=== PATIENT | female | born 1990 | race Caucasian/White ===

== ENCOUNTER 2016-11-14 14:12 | Emergency (ER) | payer MEDICAID ==
[~2016-11-14] VITALS: Ht 175.3 cm; Wt 95.8 kg
[~2016-11-14 14:12] MED LIST: IBUP-1222 PO; OXYC-302 PO
[2016-11-14 18:10] VITALS: BP 130/85
== END 2016-11-14 18:16 | disposition home or self-care (01) ==
LOC: ED 18:01
DX: Z33.1 Pregnant state, incidental (principal); Z32.01 Encounter for pregnancy test, result positive; R10.9 Unspecified abdominal pain; N93.9 Abnormal uterine and vaginal bleeding, unspecified
CPT/HCPCS: 36415; 81003; 84702; 86901; 93005; 99285